=== PATIENT | male | born 1965 | race Caucasian/White ===

== ENCOUNTER → 2019-02-08 | Outpatient (CLI) | payer OTHER ==
--- NOTE | 2019-02-10 08:08 | CT ---
EXAMINATION TYPE: CT angio head DATE OF EXAM: 02/08/2019 COMPARISON: None HISTORY: Other headache syndrome and hypertension CT DLP: 2216 mGycm CONTRAST: CTA [place] with 3-D reconstruction is performed and without and with IV Contrast, patient i njected with 100 ml mL of Isovue 370. Contrast CTA of the [place] was performed 3-D reconstruction imaging obtained at a separate workstation. Vertebrobasilar system as well as intracranial portions of the internal carotid arterie s and their major tributaries are patent. I do not see evidence for sizable aneurysm or vascular mal formation. Please note MRI provides greater sensitivity and specificity. Visualized brain appears g rossly unremarkable. IMPRESSION: No evidence for sizable aneurysm or vascular malformation.
== END | disposition home or self-care (01) ==
LOC: RADCTMAIN 10:03
PROVIDERS: ATTEND Family Medicine
DX: G44.89 Other headache syndrome (principal); I10 Essential (primary) hypertension; Z82.49 Family history of ischemic heart disease and other diseases of the circulatory system
CPT/HCPCS: 70496; Q9967

== ENCOUNTER → 2020-07-27 | Outpatient (CLI) | payer OTHER ==
--- NOTE | 2020-07-27 17:52 | CONS ---
CONSULTATION REASON FOR CONSULTATION: Chronic fatigue and sleepiness. This is a 54-year-old male patient, coming in with the chief complaint of having poor sleep quality, and the patient wants to achieve a restful night's sleep. For that reason he was referred to me. I am seeing him for a sleep consultation. The patient works and lives in [place]. 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 His main complaint is that he has poor sleep quality and has been feeling fatigued and tired all the time. He is going to bed around 8:30 to 9 p.m. and he wakes up to an alarm at around 4 a.m. in the morning. He is averaging around 6 hours of sleep. On weekends he sleeps from between 9 to 10 p.m. until he gets up between 6 and 8 a.m. in the morning. On weekends he feels more rested. He snores. He has excessive fatigue and tiredness during the day. He is waking up non-refreshed during the day. Sometimes he has difficulties in shutting down his brain. He is quite stressed, mainly job-related stress, and he is quite restless at nighttime. He moves and tosses and turns. He has been given Zoloft 100 mg for his increased anxiety and stress and he taking it at bedtime. He occasionally takes trazodone 50 mg, approximately 3 times a week. He feels that his sleep quality is improved while being on trazodone. He snores. He drinks caffeinated beverages, around two of them in the morning. His weight has been up by around 15 pounds over the past 10 years. No witnessed apneas. Very restless at nighttime during sleep; he is all over the bed, according to his . No sleep paralysis. No hallucinations. No cataplexy. No depression. No PTSD. No head trauma. No creepy crawly sensation involving the lower extremities. No sleepwalking or sleeptalking. No grinding of the teeth. PAST MEDICAL HISTORY: CAD and previous stenting, hypertension, hyperlipidemia, chronic anxiety. PAST SURGICAL HISTORY: Past surgical history includes cardiac catheterization and stenting, meniscal repair of the knee and left ring finger surgery. DRUG ALLERGIES: NOT KNOWN. MEDICATION: Medication list includes: 1. Trazodone 50 mg on an as-needed basis around 3-4 times a week. 2. Cyclobenzaprine 10 mg p.o. daily. 3. Lipitor 40 mg p.o. daily. 4. Zoloft 100 mg p.o. daily. 5. Celebrex 200 mg p.o. daily. 6. Mag D 200 mg daily. 7. Fenofibrate 145 mg p.o. daily. 8. Vitamin B12 gummy 1000 mg twice a day. 9. Plavix 75 mg p.o. daily. 10.Dicyclomine 10 mg daily. 11.Aspirin 81 mg p.o. daily. 12.Lisinopril 20 mg p.o. daily. 13.Metoprolol 50 mg p.o. daily. 14.Multivitamin 1 tablet a day. 15.Acetaminophen on an as-needed basis 500 mg. He is taking 2 in the morning, 2 in the evening. 16.Magnesium 400 mg p.o. daily. 17.Irwin-3 fish oil supplement 5 mg p.o. 2 tablets a day. SOCIAL HISTORY: Ex-smoker; quit smoking 6 years ago. No history of alcoholism. No history of IV drugs. Lives in [place]. FAMILY HISTORY: Mother from [employer] aneurysm back in 2016. Father has dementia. The patient has one sibling. No family history of sleep apnea. REVIEW OF SYSTEMS: Fourteen-point review of system was done. Positive findings are mentioned in history of present illness. PHYSICAL EXAMINATION: BP is 110/76, pulse 56, respirations 16, temperature 97.8, saturation 98% on room air. Chimayo score is 13. BMI 33.2. Neck size is 17-1/2. GENERAL APPEARANCE: Calm, comfortable. HEAD: Atraumatic, normocephalic. NECK: Supple. Mallampati class II to III. No goiter or neck masses. No micrognathia. No macroglossia. No overbite. No facial deformities. LUNGS: Clear to auscultation. HEART: Heart sounds are regular rate and rhythm. Normal S1, S2. No S3, S4. No murmurs. ABDOMEN: Soft, nontender. No organomegaly. EXTREMITIES: No edema. No cyanosis or clubbing. NEUROLOGIC: Awake and alert. There is no focal neurological deficit. IMPRESSION: 1. Chronic fatigue and sleepiness, Chimayo score 13. Exact cause is not clear, as the patient has multiple issues that could potentially disrupt his sleep quality. Obviously he is having a component of sleep-onset insomnia and sleep maintenance insomnia, and he feels better while being on trazodone. He has a high level of anxiety and stress, essentially job-related. At the same time, the patient has been quite restless at nighttime. This obviously raises a concern about periodic limb movement activity and restless legs syndrome. He may be insufficient in his sleep, as the patient is sleeping around 6 hours. On the weekend he tries tried to sleep longer, and he feels more rested. Sleep apnea is possible, although less likely, and this needs to be ruled out. 2. Chronic anxiety, maintained on Zoloft. 3. Hypertension. 4. Coronary artery disease. 5. Hyperlipidemia. PLAN: 1. Would like to evaluate this patient with a polysomnogram. This will be needed to assess his sleep quality, sleep architecture, ability to initiate and maintain sleep, and to assess the extent of sleep fragmentation and decide on treatment accordingly. Sleep apnea is possible. Periodic limb movement activity/restless leg syndrome needs to be looked into during the sleep study. Continue taking trazodone 50 mg at bedtime and make this on a daily basis and use the Zoloft 100 mg in the morning. 2. Encourage weight loss. 3. Implement good sleep hygiene measures. 4. Improve some of the stress by yoga, meditation, music therapy and relaxation techniques. This was explained to the patient. 5. Will continue to follow and make further recommendations based on results of the sleep study. MMODL / IJN: [id number] /
== END ==
LOC: SLEEP 10:13
PROVIDERS: ATTEND Internal Medicine Critical Care Medicine
DX: G47.10 Hypersomnia, unspecified (principal); F41.9 Anxiety disorder, unspecified; R53.82 Chronic fatigue, unspecified; I10 Essential (primary) hypertension; I25.10 Atherosclerotic heart disease of native coronary artery without angina pectoris; E78.5 Hyperlipidemia, unspecified
CPT/HCPCS: 99211

== ENCOUNTER → 2024-09-26 | Outpatient (CLI) | payer OTHER ==
--- NOTE | 2024-09-29 10:04 | PE ---
EXAMINATION TYPE: PET CT fusion skull to thigh DATE OF EXAM: 09/26/2024 COMPARISON: No recent pertinent CT Prior PET/CT: No prior PET/CT at this location CLINICAL INDICATION: Male, 59 years old with history of R91.8 pulmonary nodule, TECHNIQUE: Following the intravenous administration of 13.1 mCi of F-18 FDG, whole body images are p erformed PET CT fusion skull to thigh. Images are reviewed on the computer in the coronal, axial, an d sagittal planes. Reconstructed rotating images are created on independent workstation and reviewed on the computer. A localization and attenuation correction CT is performed in conjunction with the PET scan. DLP: 794 mGycm SCAN: Initial Scan Blood glucose: 113 mg/dL Average Mediastinum SUV: 2.42 Average Liver SUV: 2.64 FINDINGS: NECK: No abnormal uptake THORAX: No suspicious uptake. No suspicious uptake within a lateral right apical nodule evident. SUV 1.75. Image 70. ABDOMEN: No abnormal uptake PELVIS: No abnormal uptake OSSEOUS STRUCTURES: No abnormal uptake LOCALIZATION CT: Bilateral inguinal hernias are present COMPARISON: None IMPRESSION: 1. No suspicious uptake to suggest primary or metastatic neoplasm. 2. Uptake within the palm infiltrates is below background and can be compatible with inflammatory julia nge. 3. No suspicious focal uptake within a small nodular area lateral right apex. [facility], Workstation: [id number], 09/29/2024 10:01 AM
== END | disposition home or self-care (01) ==
LOC: RADPETMAIN 06:48
PROVIDERS: ATTEND Internal Medicine
DX: R91.8 Other nonspecific abnormal finding of lung field (principal)
CPT/HCPCS: 78815; A9552